=== PATIENT | female | born 1960 | race Caucasian/White ===

== ENCOUNTER → 2019-05-02 | Day surgery (SDC) | payer OTHER ==
[~2019-05-02] VITALS: Ht 160 cm; Wt 47.6 kg
[~2019-05-02] MED LIST: ALPR0.5T6 PO; BUPIVACAINE MPF 0.5% 30 ML VIAL. ONE; BUPIVACAINE-EPI 0.5%-1:200000 MPF 30 ML VIAL. INJ ONE; CHLO500T14 PO; CITA40TA5 PO; DEXAMETHASONE SOD PHOS 4 MG/ML VIAL ONE; DICL100G18 TP; EPINEPHrine VIAL 30 MG/30 ML VIAL ONE; FERR325T14 PO; GLYCOPYRROLATE 1 MG/5 ML VIAL. ONE; HYDR-2765 PO; HYDROmorphone 2 MG/ML VIAL IV PRN; IV RINGERS,LACTATED 1000ML 1,000 ML IV SCH; LIDO700A21 TP; LIDOCAINE 1% PF 2 ML VIAL. ONE; MIDAZOLAM HCL/PF 2 MG/2 ML VIAL. ONE; MORPHINE SULFATE 2 MG/ML VIAL. IV PRN; MULT1TAB52 PO; NEOSTIGMINE METHYLSULFATE 5 MG/5 ML SYRINGE. ONE; OMEP20CA10 PO; ONDANSETRON PF 4 MG/2 ML VIAL. ONE; OXYC1TAB19 PO; PROCHLORPERAZINE 10 MG/2 ML VIAL. IV PRN; RANI-376 PO; ROCURONIUM 50 MG/5 ML VIAL. ONE; SEVOFLURANE 61 TO 120 MINUTES. IH ONE; TRAZ-86 PO; fentaNYL PF VIAL 100 MCG/2 ML VIAL IV PRN; fentaNYL PF VIAL 100 MCG/2 ML VIAL ONE; oxyCODONE/APAP 7.5/325 1 TAB TABLET PO ONE
[2019-05-02 16:00] VITALS: BP 123/64
--- NOTE | 2019-05-02 16:41 | DISCH ---
DISCHARGE INSTRUCTIONS Condition on Discharge Condition on Discharge: Stable Activity After Discharge Activity Instructions for Disc: Other, see below (sling for comfort, may pe rform fine motor use with arm at side) Diet after Discharge Diet after Discharge: Regular Wound Incision Care Wound/Incision Care: Ice to area for comfort, Change dressing (remove dressing in 2 days may then shower no soaking until sutures removed) Community/Resources/Services Services at Discharge: PT EVALUATE & TREAT (PT 2-3 times a week for active and passive range of motion advancing to strengthening as tolerated right shoulder) Contacting the after DC Call your doctor for: Concerns you may have Follow-Up Follow up with: Dr. Coleman 1 week MAIKOL COLEMAN MD May 02, 2019 16:41
--- NOTE | 2019-05-02 17:11 | PDOC4 ---
Operative Note Operative Note Date of surgery: 05/02/2019 Preoperative diagnosis: Right acromioclavicular joint pain and rotator cuff weakness Postoperative diagnosis: Right acromioclavicular degenerative change and partial thickness supraspinatus and subscapularis undersurface tears Operative procedure: Right shoulder arthroscopy debridement of partial thickness supraspinatus subscapularis tears subacromial decompression and distal clavicle excision Surgeon: Jared Assist: Kaushik Carmichael nurse practitioner Anesthesia Gen. plus intrascalene block Estimated blood loss: 5 mL Complications: None Operative indications: Dinah is a 58-year-old female that injured herself at work and has had recurrent pain over the chromic likely joint on her dominant right shoulder despite initial relief with injection and has some ongoing rotator cuff weakness that is been unresponsive to nonoperative management. We had discussed the possibility of arthroscopic treatment with a distal clavicle excision exploration of her rotator cuff and possible repair or dressing other pathology as necessary she is aware of the sometimes long recovery process was shoulder surgery possibility of ongoing pain and weakness infection nerve or blood vessel damage medical or other anesthetic complications among others and she agrees to proceed with surgical evaluation and treatment. Operative text: Patient was identified procedure verified patient placed in the supine position on the operating table. After adequate amounts of general anesthesia were administered plus of pre-existing scalene block she placed in the decubitus position right side up with all bony prominences padded and the right shoulder was prepped and draped in standard sterile fashion. She was then placed and total of 10 pounds of traction with arthroscopic arm gaytan and after timeout was performed patient procedure identified and verified a standard posterior portal was established an anterior portal established using spinal needle localization and the shoulder joint was systematically examined. Biceps anchor was noted to be intact and biceps tendon showed no subluxation or fraying. She did have undersurface fraying of the supraspinatus and subscapularis tendons involving approximately 20% of the insertion she had a normal bare area of the humerus well maintained glenohumeral joint normal capsule ligament structures. Subacromial space was then entered bursa was cleared to allow visualization and rotator cuff she had a large anterior acromial spur and degenerative changes to the acromioclavicular joint a decompression was carried out converting the acromion to a type I acromion using cutting block technique with an arthroscopic bur and distal clavicle excision was carried out to 1 cm preserving the overlying capsular tissue for stability. Bony fragments were removed with arthroscopic shaver and the rotator cuff was examined from the bursal side and all degrees of internal/external rotation and found to be intact. The joint was drained of arthroscopic fluid portals closed with nylon suture sterile dressings were applied she was returned to recovery room in stable condition having tolerated procedure well. Kaushik Carmichael nurse practitioner was present for the procedure assisted in the prepping draping positioning throughout the procedure and skin closure MAIKOL GAGE MD May 02, 2019 17:11
== END ==
LOC: SURG 12:50
PROVIDERS: ATTEND Orthopaedic Surgery
DX: M19.011 Primary osteoarthritis, right shoulder (principal); M75.111 Incomplete rotator cuff tear or rupture of right shoulder, not specified as traumatic
CPT/HCPCS: 29822; 29824; 29826; A7015; C1713; J0171; J0690; J1100; J2250; J2405; J2710; J3010; J3490; J7120